=== PATIENT | female | born 1985 | race Caucasian/White ===

== ENCOUNTER 2021-03-07 11:16 | Emergency (ER) | payer OTHER, SELFPAY ==
[2021-03-07 11:23] VITALS: BP 129/80; PULSE 98; RESP 16; TEMP 36.4; O2SAT 100
[2021-03-07 11:48] VITALS: O2SAT 99
--- NOTE | 2021-03-07 13:02 | ED.GENADULT ---
HPI - General Adult General Chief complaint: Upper Respiratory Infection Stated complaint: cold sx Time Seen by Provider: 03/07/21 12:41 Source: patient Mode of arrival: ambulatory Limitations: no limitations History of Present Illness HPI narrative: Patient presents for evaluation of upper respiratory symptoms since yesterday. She reports nasal congestion, drainage, scratchy throat, frontal headache, and subjective fever. She denies objective fever, chills, nausea, vomiting, diarrhea, cough or shortness of breath. She states that her daughter has similar symptoms to her. Her sons have some allergy symptoms. She has not tried any medications to assist with her symptoms. She received her 2nd COVID vaccine a few weeks ago. She did have COVID infection in the past but states her current symptoms are not consistent with those experienced with COVID in the past. She does not smoke. No additional complaints or concerns. Related Data Allergies Allergy/AdvReac Type Severity Reaction Status Date / Time No Known Allergies Allergy Verified 03/07/21 11:47 Review of Systems Review of Systems: Narrative: CONSTITUTIONAL: Reports subjective fever. Denies objective fever, chills, or sweats. EYES: Denies visual changes, redness, or discharge. ENT: Reports sinus congestion/drainage and scratchy throat . Denies sore throat per se CARDIOVASCULAR: Denies chest pain, palpitations, or edema. RESPIRATORY: Denies cough or dyspnea. GASTROINTESTINAL: Denies abdominal pain, nausea, vomiting, or diarrhea. GENITOURINARY: Denies dysuria or hematuria. SKIN: Denies rash or itching. MUSCULOSKELETAL: Denies back pain, joint pain, or myalgia. NEUROLOGIC: Denies headache, numbness, dizziness, or weakness. PSYCHIATRIC: Denies anxiety or depression. [facility] Past Medical History Medical History (Updated 03/07/21 @ 13:08 by SUMAN Thompson, PAULY) No pertinent past medical history Surgical History Surgical History History of hernia repair Family History Family History Mother Diabetes mellitus Social History Social History Smoking status: Never smoker Substance use: never Living arrangements: with family Gender identity (if verbalized by the patient): Female Sexual Orientation (if Verbalized by the Patient): Straight or Heterosexual Spiritual care concerns: No Exam Narrative: Exam Narrative: GENERAL: Well-appearing, well-nourished, and in no acute distress. HEAD: Normocephalic, atraumatic. EYES: PERRLA and EOMI. ENT: Nares clear, no rhinorrhea or epistaxis. Mucous membranes moist. Oropharynx without tonsillar hypertrophy exudate or other lesions. Bilateral TMs pearly crawley nonbulging NECK: Supple. No adenopathy or masses. No carotid bruits or JVD CHEST: Clear to auscultation. No respiratory distress. No wheezes rales or rhonchi HEART: Regular rate and rhythm. No murmur heard. Normal peripheral pulses. ABDOMEN: Soft, nontender, nondistended, normal active bowel sounds. EXTREMITIES: Normal range of motion. No edema. SKIN: Warm, dry, no rash. NEURO: No focal deficits. Alert and oriented x3. PSYCH: Normal mood and affect. Course Course Emergency Course: This is a 35-year-old female who presents with upper respiratory symptoms that started yesterday. On physical exam, she appears very well clinically. She has no cough or shortness of breath to suggest pneumonia. We did swab for strep and COVID. Exam is consistent with viral URI. Will place on ibuprofen, flonase and sudafed. She was instructed to follow up outpatient for further evaluation and treatment and return for worsening symptoms. Vital Signs Vital signs: Vital Signs Temperature 36.4 C L 03/07/21 11:23 Pulse Rate 98 03/07/21 11:23 Respiratory Rate 16 03/07/21 11:23 Blood Pressure 129
--- NOTE | 2021-03-07 13:15 | PC.NURSE ---
In to swab patient, pt states she does not want the swabs, states she does not feel she has strep throat, does not have a sore throat, reports only sinus pressure . Explained covid collection, pt states I really don't think I have that either; I'm not even running a fever, I have taste and smell . Pt discharged.
== END 2021-03-07 13:21 | disposition home or self-care (01) ==
PROVIDERS: Emergency Provider Nurse Practitioner; PCP Nurse Practitioner Psychiatric/Mental Health
DX: J06.9 Acute upper respiratory infection, unspecified (principal); Z86.16 Personal history of COVID-19
CPT/HCPCS: 99283